=== PATIENT | male | born 1935 | race Caucasian/White ===

== ENCOUNTER → 2016-12-18 | Outpatient (CLI) | payer MEDICARE | END | disposition home or self-care (01) | LOC: PCVCCLINIC 12:00 | PROVIDERS: ATTEND Internal Medicine Cardiovascular Disease | DX: I44.0 Atrioventricular block, first degree (principal); I25.10 Atherosclerotic heart disease of native coronary artery without angina pectoris; I10 Essential (primary) hypertension; E78.00 Pure hypercholesterolemia, unspecified; M19.90 Unspecified osteoarthritis, unspecified site; E11.9 Type 2 diabetes mellitus without complications; R25.1 Tremor, unspecified; J44.9 Chronic obstructive pulmonary disease, unspecified; Z85.46 Personal history of malignant neoplasm of prostate; Z95.5 Presence of coronary angioplasty implant and graft; Z79.84 Long term (current) use of oral hypoglycemic drugs; Z79.82 Long term (current) use of aspirin | CPT/HCPCS: 80061; 93005; G0463 ==

== ENCOUNTER → 2017-01-08 | Outpatient (CLI) | payer MEDICARE ==
[~2017-01-08] MED LIST: REGADENOSON 0.4 MG/5 ML DISP.SYRIN. IV ONE
--- NOTE | 2017-01-11 18:27 | PCVCIMAG ---
APPROVED REPORT Exam: Nuclear Stress Test Indication: CAD, Fatigue Patient Location: Out-Patient Stress Nurse: Simona Wong RN, Itzel Torres RN SD Tech:Olu Mcnamara NMTCB Ht: 6 ft 10 in Wt: 222 lbs BSA: 2.45 m2 HR: 74 bpm BP: 200/100 mmHg BMI: 23.2 Rhythm: First degree AV Block Medical History Medical History: Age, Hyperlipidemia, HTN, CAD, Medications: Bumex, Fenofibrate, Pravastatin, Benicar Allergies: Furosemide Previous Cardiac Procedures: PCI 2007 Pretest Chest Pain Characteristics: No chest pain Exercise History: Sedentary Meds Held (24 hrs): Pt held all am meds on his own NM EXAM: Myocardial Perfusion REST/STRESS Imaging Protocol: Rest Tc-99m/Stress Tc-99m 1 day Resting Data Rest SPECT myocardial perfusion imaging was performed in supine position 45 minutes following the intravenous injection of 12 mCi of Tc-99m Sestamibi. Time of rest injection: 815 Date: 01/08/2017 Pharmacologic Stress Pharmacologic stress test was performed by injecting Regadenoson 0.4 mg IV push followed by the intravenous injection of 36 mCi of Tc-99m Sestamibi. Time of stress injection: 0930 Date: 01/08/2017 The images were gated to evaluate regional wall motion and calculate left ventricular ejection fraction. Study Quality Study: Good Study Data Post stress, the left ventricular ejection was 58%.. SSS: 3 SRS: 0 SDS: 3 TID = 0.92. Perfusion Medium sized area of moderate reversible ischemia involving the mid/basal lateral and inferior left ventricle consistent with a circumflex distribution. Wall Motion Normal left ventricular size and function with no regional wall motion abnormalities. Nuclear Conclusion Medium sized area of moderate reversible ischemia involving the mid/basal lateral and inferior left ventricle consistent with a circumflex distribution has developed since June 2013 study. Normal left ventricular size and function with no regional wall motion abnormalities. Post stress, the left ventricular ejection was 58%.. Interpreted by: Teo Badillo MD Electronically Approved: 01/08/2017 17:54:07 Stress Test Details Stress Test: Pharmacologic stress testing performed using 0.4 mg of regadenoson per 5 mL given IV over 10 seconds. Reason for pharmacologic stress test: physical limitation. HR Resting HR: 74 bpmMax Heart Rate (APMHR): 140 bpm Max HR Achieved: 96 bpmTarget HR (85% APMHR): 119 bpm % of APMHR: 68 Recovery HR: 91 bpm BP Resting BP: 200/100 mmHg Max BP: 177/81 mmHg ECG Resting ECG: Sinus Rhythm,1st degree AV block Stress ECG: Sinus Rhythm,1st degree AV block, Sinus Rhythm, NSSTT changes Recovery ECG: Sinus Rhythm,1st degree AV block Clinical Reason for Termination: Completed protocol Stress Symptoms: Dyspnea, Headache Symptoms resolved with caffeine. Stress ECG Conclusion ECG: Non-ischemic <Conclusion> ECG: Non-ischemic
--- NOTE | 2017-01-11 18:30 | PCVCIMAG ---
APPROVED REPORT Study performed: 01/08/2017 07:52:49 EXAM: Comprehensive 2D, Doppler, and color-flow Echocardiogram Status: routine BSA: 2.17 HR: 78 bpmBP: 190/110 mmHg Rhythm: NSR Other Information Study Quality: Technically Limited Indications Hypertension/HDD CAD, Hyperlipidemia, SOA. 2D Dimensions LVEF(%): 71.13 (>50%) IVSd: 13.90 (7-11mm)LVOT Diam: 22.75 (18-24mm) LVDd: 43.25 mm PWd: 14.72 (7-11mm)Ascending Ao: 40.69 (22-36mm) LVDs: 25.88 (25-40mm) Left Atrium: 37.95 (27-40mm) Aortic Root: 29.16 mm LV Single Plane 4CH: 56.14 % LV Single Plane 2CH: 63.30 %Acevedo's LVEF: 59.72 % Biplane EF: 60.4 % Volumes Left Atrial Volume (Systole) Single Plane 4CH: 52.74 mLSingle Plane 2CH: 48.25 mL Biplane LA Volume: 53.00 mLLA ESV Index: 24.00 mL/m2 Aortic Valve AoV Peak Javy.: 1.24 m/s AO Peak Gr.: 6.16 mmHgLVOT Max P.03 mmHg LVOT Max V: 1.00 m/s MISSY Vmax: 3.29 cm2 Mitral Valve E/A Ratio: 0.7 MV Decel. Time: 343.77 ms MV E Max Javy.: 0.85 m/s MV A Javy.: 1.27 m/s IVRT: 179.93 ms TDI E/Lateral E': 12.14E/Medial E': 28.33 Medial E' Javy.: 0.03 m/s Lateral E' Javy.: 0.07 m/s Pulmonary Valve PV Peak Gr.: 1.81 mmHg Left Ventricle The left ventricle is normal size. There is normal LV segmental wall motion. Mild concentric left ventricular hypertrophy. Left ventricular systolic function is normal. The left ventricular ejection fraction is within the normal range. LVEF is 60-65%. The left ventricular diastolic function is normal. Right Ventricle The right ventricle is normal size. The right ventricular systolic function is normal. Atria The left atrium size is normal. The right atrium size is normal. Aortic Valve The aortic valve is normal in structure. Ascending Aorta measures 4.1cm. No aortic regurgitation is present. There is no aortic valvular stenosis. Mitral Valve The mitral valve is normal in structure. Mild mitral annular calcification. There is no mitral valve regurgitation noted. No evidence of mitral valve stenosis. Tricuspid Valve The tricuspid valve is normal in structure. There is no tricuspid valve regurgitation noted. Pulmonic Valve The pulmonary valve is normal in structure. There is no pulmonic valvular regurgitation. Great Vessels The aortic root is normal in size. IVC is normal in size and collapses with >50% inspiration Pericardium There is no pericardial effusion. <Conclusion> The left ventricle is normal size. Mild concentric left ventricular hypertrophy. LVEF is 60-65%. The right ventricle is normal size. The left atrium size is normal. The aortic valve is normal in structure. Ascending Aorta measures 4.1cm. There is no pericardial effusion. There is no tricuspid valve regurgitation noted.
== END | disposition home or self-care (01) ==
LOC: PCVCIMAG 07:47
PROVIDERS: ATTEND Internal Medicine Cardiovascular Disease
DX: I44.0 Atrioventricular block, first degree (principal); I51.7 Cardiomegaly; I25.10 Atherosclerotic heart disease of native coronary artery without angina pectoris; I10 Essential (primary) hypertension; E78.5 Hyperlipidemia, unspecified; K52.9 Noninfective gastroenteritis and colitis, unspecified; E78.00 Pure hypercholesterolemia, unspecified; M19.90 Unspecified osteoarthritis, unspecified site
CPT/HCPCS: 78452; 93017; 93306; A9500; J2785

== ENCOUNTER → 2017-03-25 | Outpatient (CLI) | payer MEDICARE | END | disposition home or self-care (01) | LOC: PCVCCLINIC 15:45 | PROVIDERS: ATTEND Internal Medicine Cardiovascular Disease | DX: I48.91 Unspecified atrial fibrillation (principal); I10 Essential (primary) hypertension; I25.10 Atherosclerotic heart disease of native coronary artery without angina pectoris; E78.00 Pure hypercholesterolemia, unspecified; I44.0 Atrioventricular block, first degree; M19.90 Unspecified osteoarthritis, unspecified site; Z79.899 Other long term (current) drug therapy | CPT/HCPCS: 93005; G0463 ==

== ENCOUNTER → 2017-09-24 | Outpatient (CLI) | payer MEDICARE | END | disposition home or self-care (01) | LOC: PCVCCLINIC 12:59 | DX: I25.10 Atherosclerotic heart disease of native coronary artery without angina pectoris (principal); E78.00 Pure hypercholesterolemia, unspecified; I10 Essential (primary) hypertension; E11.9 Type 2 diabetes mellitus without complications; I48.0 Paroxysmal atrial fibrillation; Z79.4 Long term (current) use of insulin; Z79.899 Other long term (current) drug therapy | CPT/HCPCS: 80061; 93005; G0463 ==

== ENCOUNTER → 2018-04-20 | Outpatient (CLI) | payer MEDICARE | END | disposition home or self-care (01) | LOC: PCVCCLINIC 14:57 | PROVIDERS: ATTEND Internal Medicine Cardiovascular Disease | DX: I25.10 Atherosclerotic heart disease of native coronary artery without angina pectoris (principal); I48.0 Paroxysmal atrial fibrillation; I10 Essential (primary) hypertension; E78.00 Pure hypercholesterolemia, unspecified; J44.9 Chronic obstructive pulmonary disease, unspecified; Z79.82 Long term (current) use of aspirin; Z79.899 Other long term (current) drug therapy | CPT/HCPCS: 80061; 93005; G0463 ==

== ENCOUNTER → 2018-11-09 | Outpatient (CLI) | payer MEDICARE | END | disposition home or self-care (01) | LOC: PCVCCLINIC 14:00 | PROVIDERS: ATTEND Internal Medicine Cardiovascular Disease | DX: I25.10 Atherosclerotic heart disease of native coronary artery without angina pectoris (principal); I48.0 Paroxysmal atrial fibrillation; I10 Essential (primary) hypertension; E78.00 Pure hypercholesterolemia, unspecified; N20.0 Calculus of kidney; Z88.8 Allergy status to other drugs, medicaments and biological substances; Z79.899 Other long term (current) drug therapy; Z79.84 Long term (current) use of oral hypoglycemic drugs | CPT/HCPCS: 36415; 80061; 93005; G0463 ==

== ENCOUNTER → 2019-02-22 | Outpatient (CLI) | payer MEDICARE ==
--- NOTE | 2019-02-24 15:42 | PCVCIMAG ---
APPROVED REPORT Imaging Protocol: Rest Tc-99m/Stress Tc-99m 1 day Study performed: 02/22/2019 10:38:29 Indication: CAD, Afib, Syncope Patient Location: Out-Patient Stress Nurse: Simona Wong RN NM Tech:Olu Mcnamara NMTCB Ht: 5 ft 11 in Wt: 220 lbs BSA: 2.20 m2 HR: 93 bpm BP: 141/78 mmHg BMI: 30.6 Rhythm: Sinus Rhythm, First degree AV Block, PAC's Medical History Medical History: Age, Hyperlipidemia, CVD, TIA, Afib, DM Insulin Medications: Amlodipine, Atorvastatin, Fenofibrate, Irbesartan, Xarelto, Levemir, Metformin, Januvia Allergies: Furosemide Exercise History: Sedentary Physical Disabilities: Unsteady gait Resting Data Rest SPECT myocardial perfusion imaging was performed in supine position 45 minutes following the intravenous injection of 10.7 mCi of Tc-99m Sestamibi. Time of rest injection: 1015 Date: 02/22/2019 Administration Route: IV Administration Site: Right Wrist Pharmacologic Stress Pharmacologic stress test was performed by injecting Regadenoson 0.4 mg IV push over 10-15 seconds immediately followed by the intravenous injection of 35.2 mCi of Tc-99m Sestamibi. Time of stress injection: 1125 Date: 02/22/2019 Administration Route: IV Administration Site: Right Wrist Gated Stress SPECT was performed 45 minutes after stress injection. The images were gated to evaluate regional wall motion and calculate left ventricular ejection fraction. Stress Test Details Stress Test: Pharmacologic stress testing performed using 0.4 mg of regadenoson per 5 mL given IV over 10 seconds. Reason for pharmacologic stress test: Unsteady gait. HRMax Heart Rate (APMHR): 138 bpm Resting HR: 93 bpmTarget HR (85% APMHR): 117 bpm Max HR Achieved: 100 bpm % of APMHR: 72 Recovery HR: 93 bpm BP Resting BP: 141/78 mmHg Max BP: 157/88 mmHg Recovery BP: 157/85 mmHg ECG Resting ECG: Sinus Rhythm, 1st degree AV block Stress ECG: Sinus Tachycardia, 1st degree AV block Arrhythmia: PAC's Recovery ECG: Sinus Rhythm, 1st degree AV block Clinical Reason for Termination: Completed protocol Stress Symptoms: Dyspnea, Lightheaded Symptoms resolved with caffeine. Stress ECG Conclusion ECG: Non-ischemic Study Quality Study: Good Study Data Post stress, the left ventricular ejection was 74%.. SSS: 0 SRS: 0 SDS: 0 TID = 0.98. Perfusion No evidence of stress induced ischemia or prior myocardial infarction. Wall Motion Normal left ventricular size and function with no regional wall motion abnormalities. Nuclear Conclusion No evidence of stress induced ischemia or prior myocardial infarction. Normal left ventricular size and function with no regional wall motion abnormalities. Post stress, the left ventricular ejection was 74%. No prior study available for comparison. Interpreted by: Teo Badillo MD Electronically Approved: 02/22/2019 12:51:53 <Conclusion> ECG: Non-ischemic
== END | disposition home or self-care (01) ==
LOC: PCVCIMAG 10:02
PROVIDERS: ATTEND Internal Medicine Cardiovascular Disease
DX: I25.10 Atherosclerotic heart disease of native coronary artery without angina pectoris (principal); I48.0 Paroxysmal atrial fibrillation; R55 Syncope and collapse; G51.0 Bell's palsy; I10 Essential (primary) hypertension; G45.9 Transient cerebral ischemic attack, unspecified; J44.9 Chronic obstructive pulmonary disease, unspecified; E78.00 Pure hypercholesterolemia, unspecified; E11.9 Type 2 diabetes mellitus without complications; Z79.4 Long term (current) use of insulin
CPT/HCPCS: 78452; 93005; 93017; A9500; G0463; J2785